=== PATIENT | female | born 1935 | race Caucasian/White ===

== ENCOUNTER → 2016-12-15 | Outpatient (CLI) | payer MEDICARE, BC ==
[~2016-12-15] MED LIST: ALBU8.5H3; AMOX500T2 PO; ASPI-725 PO; BECLOMETHASONE; DILT240C4 PO; GARL1000 PO; HYDR12.523 PO; IOHEXOL 300 MG/ML 75ml INJECTION ONE; NIAC500C9 PO; NORMAL SALINE 100 ML ONE; OMEP40CA52 PO; POTA10TA14 PO; SALINE FLUSH 10ml SYRINGE ONE
--- NOTE | 2016-12-15 10:43 | DI ---
Indication: ITS.REASON: R68.83 CHILLS W/O FEVER, D72.829 ELEVATED WBC, R70.0 PROCEDURE: CT ABD/PELVIS W/CONTRAST ONLY: Encounter: Initial Comparison: None Technique: Axial CT images were performed through the abdomen and pelvis after the administration of intravenous contrast. Coronal and sagittal two-dimensional reformats. Contrast: Omnipaque 300 100 mL FINDINGS: Abdomen: The lung bases are clear. There is no evidence of pleural effusion. The liver is homogeneous in appearance without evidence of enhancing lesion or mass. There is no intra or extrahepatic biliary ductal dilatation. Subtle calcifications noted dependently in the gallbladder. The spleen, pancreas, bilateral adrenals and kidneys are within normal limits. The visualized loops of small and large bowel within the abdomen are unremarkable, with prominent stool throughout colon. The cecum lies low in right adnexa. Appendix is not identified with certainty. There is no free fluid or intra-abdominal mass seen. No aggressive lytic or blastic bony lesions are noted. Pelvis: The visualized loops of small and large bowel within the pelvis are unremarkable. There is no free pelvic fluid. There is no inguinal or pelvic lymphadenopathy. There is prominent levoscoliosis of lumbar spine with marked disc space narrowing and hypertrophic spurring. IMPRESSION: 1. No evidence of abnormal bowel distention, inflammatory change or abscess. 2. Mild fecal stasis. 3. Cholelithiasis but no CT evidence of biliary disease. 4. Levoscoliosis, marked disc space narrowing and hypertrophic spurring throughout lumbar spine. .
== END ==
LOC: IMA 07:32
PROVIDERS: ATTEND Family Medicine
DX: R68.83 Chills (without fever) (principal); K59.09 Other constipation; K80.20 Calculus of gallbladder without cholecystitis without obstruction; M41.9 Scoliosis, unspecified; M51.36 Other intervertebral disc degeneration, lumbar region; D72.829 Elevated white blood cell count, unspecified; R70.0 Elevated erythrocyte sedimentation rate
CPT/HCPCS: 36415; 74177; 87040; 87147; 87150; 87205; J7050; Q9967